=== PATIENT | female | born 1950 | race Caucasian/White ===

== ENCOUNTER 2018-07-19 13:22 | Emergency (ER) | payer BC, MEDICARE ==
[2018-07-19] MEDS: Ondansetron 4 MG Tab.DIS PO PRN (14:09)
[2018-07-19] MEDS ORDERED: Ondansetron 4 MG Tab.DIS ONE (14:16)
--- NOTE | 2018-07-19 14:57 | EDM.PDOC ---
ED HPI GENERAL MEDICAL PROBLEM - General Stated Complaint: VERTIGO Time Seen by Provider: 07/19/18 13:50 Source of Information: Reports: Patient, Family History Limitations: Reports: No Limitations - History of Present Illness INITIAL COMMENTS - FREE TEXT/NARRATIVE: This is a 67yo F with nausea and vomiting for the past day. She states the room spins and then she gets nauseated and throws up. She denies any fever, no body aches, no sore throat. Patient denies other concerns except the nausea, dizziness and vomiting. Onset: Sudden Duration: Hour(s):, Constant Location: Reports: Generalized - Related Data Allergies Allergy/AdvReac Type Severity Reaction Status Date / Time No Known Allergies Allergy Verified 11/17/13 12:01 ED ROS GENERAL - Review of Systems Review Of Systems: ROS reveals no pertinent complaints other than HPI. ED EXAM, DIZZINESS - Physical Exam Exam: See Below Exam Limited By: No Limitations General Appearance: Alert, WD/WN, Moderate Distress Eye Exam: Bilateral Eye: EOMI, PERRL Nystagmus: worsens with head to L Ears: Normal External Exam, Normal Canal, Normal TMs, Other (wears hearing aids) Nose: Normal Inspection Throat/Mouth: Normal Inspection Head Exam: Atraumatic, Normocephalic Vertigo: worsens with head to L Neck: Normal Inspection, Supple, Non-Tender, Full Range of Motion Respiratory/Chest: No Respiratory Distress, Lungs Clear, Normal Breath Sounds Cardiovascular: Normal Peripheral Pulses, Regular Rate, Rhythm GI/Abdominal: Normal Bowel Sounds Neurological: Alert, Difficulty Walking Back Exam: Normal Inspection Extremities: Normal Inspection Psychiatric: Normal Affect, Normal Mood Skin Exam: Warm, Dry, Intact Course - Vital Signs Last Recorded V/S: Last Vital Signs Temp 36.2 C 07/19/18 13:42 Pulse 100 07/19/18 13:42 Resp 16 07/19/18 13:42 BP 148/78 H 07/19/18 13:42 Pulse Ox 98 07/19/18 13:42 - Orders/Labs/Meds Meds: Medications Discontinued Medications Generic Name Dose Route Start Last Admin Trade Name Freq PRN Reason Stop Dose Admin Meclizine HCl 25 mg 07/19/18 14:05 07/19/18 14:09 Antivert PO 25 mg DAILY PRN Administration Nausea/Vomiting Meclizine HCl Confirm 07/19/18 14:11 Antivert Administered 07/19/18 14:12 Dose 25 mg .ROUTE .STK-MED ONE Ondansetron HCl 4 mg 07/19/18 14:07 07/19/18 14:09 Zofran Odt PO 4 mg Q4H PRN Administration Nausea/Vomiting Ondansetron HCl Confirm 07/19/18 14:16 Zofran Odt Administered 07/19/18 14:17 Dose 4 mg .ROUTE .STK-MED ONE Departure - Departure Time of Disposition: 14:15 Disposition: Home, Self-Care 01 Condition: Good Clinical Impression: BPPV (benign paroxysmal positional vertigo) Qualifiers: Laterality: left Qualified Code(s): H81.12 - Benign paroxysmal vertigo, left ear - Discharge Information Instructions: Vertigo, [id number], Benign Positional Vertigo Referrals: PCP,None [Primary Care Provider] - Care Plan Goals: Return to hospital or clinic if symptoms don't improve. - Problem List & Annotations (1) Vomiting SNOMED Code(s): 186595291 Code(s): R11.10 - VOMITING, UNSPECIFIED Status: Acute Qualifiers: Vomiting type: unspecified Vomiting Intractability: unspecified Nausea presence: with nausea Qualified Code(s): R11.2 - Nausea with vomiting, unspecified (2) Nausea SNOMED Code(s): 747579152 Code(s): R11.0 - NAUSEA Status: Acute Priority: High (3) BPPV (benign paroxysmal positional vertigo) SNOMED Code(s): 708613616 Code(s): H81.10 - BENIGN PAROXYSMAL VERTIGO, UNSPECIFIED EAR Status: Acute Qualifiers: Laterality: left Qualified Code(s): H81.12 - Benign paroxysmal vertigo, left ear - Problem List Review Problem List Initiated/Reviewed/Updated: Yes - Assessment/Plan Plan: Counseled on BPPV and management. Patient would like to try modified Rigoberto's maneuver at home when things are settled and she feels better. Counseled on maneuver and management of BPPV. Patient counseled on meclizine and zofran use and f/u if symptoms persist or worsen.
== END 2018-07-19 14:28 | disposition home or self-care (01) ==
LOC: LB.ED 13:22
DX: H81.12 Benign paroxysmal vertigo, left ear (principal)
CPT/HCPCS: 99283; A9270-GY

== ENCOUNTER 2024-11-09 01:21 | Emergency (ER) | payer MEDICARE ==
[2024-11-09] MEDS: Labetalol 100 MG/20 ML MDV IVPUSH ONE (01:44)
[2024-11-09] MEDS: Amoxicillin 500 MG Cap PO ONE (02:11)
[2024-11-09] MEDS ORDERED: Sodium Chloride 0.9% 10 ML Syringe FLUSH PRN (02:12)
== END 2024-11-09 02:20 | disposition home or self-care (01) ==
LOC: LB.ED 01:21
DX: R04.0 Epistaxis (principal); I10 Essential (primary) hypertension; Z79.899 Other long term (current) drug therapy
CPT/HCPCS: 30901; 96374; 99282; 99283-25; A9270-GY; J1920